=== PATIENT | female | born 1990 | race Caucasian/White ===

== ENCOUNTER 2023-12-25 15:45 | Emergency (ER) | payer OTHER, MEDICAID ==
[2023-12-25] MEDS: Non-Formulary Medication 1 Each (Buprenorphine Hcl/Naloxone Hcl [Suboxone 12 Mg-3 Mg Sl Fi SL SCH (17:17)
[2023-12-25] MEDS: Non-Formulary Medication 1 Each (Alprazolam [Xanax] 1 MG Tablet) PO SCH (17:17)
[2023-12-25] MEDS: ALPRAZolam 0.5 MG Tab PO SCH (17:33)
[2023-12-25] MEDS: Buprenorphine/Naloxone 8-2 MG Tab.SL SL SCH (17:33)
[2023-12-25] MEDS: Loratadine 10 MG Tab PO ONE (17:33)
[2023-12-25] MEDS: FLUoxetine 20 MG Cap PO SCH (17:33)
[2023-12-25] MEDS: Buprenorphine/Naloxone 2-0.5 MG Tab.SL SL SCH (17:34)
[2023-12-25] MEDS: Gabapentin 400 MG Cap PO SCH (17:34)
[2023-12-25] MEDS: Non-Formulary Medication 1 Each (Loratadine [Claritin] 10 MG Capsule) PO SCH (17:50)
[2023-12-26] MEDS ORDERED: Non-Formulary Medication 1 Each (Buprenorphine Hcl/Naloxone Hcl [Suboxone 12 Mg-3 Mg Sl Fi SL SCH (09:00)
[2023-12-26] MEDS ORDERED: Loratadine 10 MG Tab PO SCH (09:00)
== END 2023-12-25 17:50 ==
LOC: JP.ED 15:45
DX: E11.9 Type 2 diabetes mellitus without complications; F17.210 Nicotine dependence, cigarettes, uncomplicated; Z88.5 Allergy status to narcotic agent; Z88.8 Allergy status to other drugs, medicaments and biological substances
CPT/HCPCS: 99282; A9270; J0574; 99283